=== PATIENT | female | born 1945 | race Caucasian/White ===

== ENCOUNTER 2022-10-12 12:50 | Emergency (ER) | payer MEDICARE ==
[~2022-10-12] VITALS: Ht 160 cm; Wt 55.3 kg
[2022-10-12] MEDS ORDERED: OXYC5 PO (14:11)
== END 2022-10-12 14:18 | disposition home or self-care (01) ==
LOC: ER 12:50
DX: S42.215A Unspecified nondisplaced fracture of surgical neck of left humerus, initial encounter for closed fracture (principal); W18.30XA Fall on same level, unspecified, initial encounter
CPT/HCPCS: 73060; 73070; A9270; J1885

== ENCOUNTER 2022-10-27 15:04 | Emergency (ER) | payer OTHER ==
[~2022-10-27] VITALS: Ht 152.4 cm; Wt 68.0 kg
[~2022-10-27 15:04] MED LIST: OXYC5 PO
[2022-10-27] MEDS ORDERED: Norco 5-325 Ta1 EACH PO (16:27)
== END 2022-10-27 16:58 | disposition home or self-care (01) ==
LOC: ER 15:04
DX: S42.202A Unspecified fracture of upper end of left humerus, initial encounter for closed fracture (principal); W18.30XA Fall on same level, unspecified, initial encounter
CPT/HCPCS: 73060

== ENCOUNTER 2023-07-12 16:32 | Emergency (ER) | payer OTHER ==
[~2023-07-12] VITALS: Ht 152.4 cm; Wt 59.4 kg
[~2023-07-12 16:32] MED LIST changes: +Norco 5-325 Ta1 EACH PO
[2023-07-12 17:29] LABS: BASOPHILS ABSOLUTE AUTO 0.07 K/mm3 (0.00-0.23); BASOPHILS PERCENT AUTO 1 % (0-2); EOSINOPHILS ABSOLUTE AUTO 0.11 K/mm3 (0.00-0.68); EOSINOPHILS PERCENT AUTO 2 % (0-6); Hematocrit 39.9 % (33.0-51.0); IMMATURE GRAN ABSOLUTE AUTO 0.01 K/mm3 (0.00-0.10); IMMATURE GRAN PERCENT AUTO 0 % (0-1); LYMPHOCYTES ABSOLUTE AUTO 1.31 K/mm3 (0.84-5.20); LYMPHOCYTES PERCENT AUTO 23 % (21-46); MONOCYTES ABSOLUTE AUTO 0.52 K/mm3 (0.16-1.47); MONOCYTES PERCENT AUTO 9 % (4-13); Mean Corpuscular HGB 31.3 pg (26.0-34.0); Mean Corpuscular HGB Conc 32.6 g/dL (31.5-36.5); Mean Corpuscular Volume 96 fL (80-100); Mean Platelet Volume 9.8 fL (9.1-12.4); NEUTROPHILS ABSOLUTE AUTO 3.63 K/mm3 (1.96-9.15); NEUTROPHILS PERCENT AUTO 64 % (41-73); Platelet Count 187 K/mm3 (150-400); RDW Coefficient Variation 14.3 % (11.7-14.2); RDW Standard Deviation 49.8 fL (35.1-46.3); Red Blood Cell Count 4.15 M/mm3 (3.80-5.20); White Blood Cell Count 5.65 K/mm3 (4.00-11.30)
[2023-07-12 17:49] LABS: Albumin/Globulin Ratio 1.1 (0.8-1.8); Bilirubin, Total 0.5 mg/dL (0.1-1.0); Globulin, Blood 3.6 g/dL (2.2-4.0); Potassium, Blood 4.3 mmol/L (3.5-5.5); Total Protein, Blood 7.6 g/dL (6.4-8.2)
[2023-07-12 19:44] VITALS: BP 125/80
== END 2023-07-12 21:18 | disposition home or self-care (01) ==
LOC: ER 16:32
PROVIDERS: Student in an Organized Health Care Education/Training Program
DX: J44.9 Chronic obstructive pulmonary disease, unspecified (principal); Z95.0 Presence of cardiac pacemaker
CPT/HCPCS: 71046; 80053; 84484; 85025; 85379; 93005; 93010; 99284-25

== ENCOUNTER → 2023-08-03 | Outpatient (CLI) | payer OTHER ==
[2023-08-03 15:40] LABS: U Amphetamine Screen Not Detected; U Barbituate Screen DETECTED; U Benzodiazapine Screen Not Detected; U Buprenorphine Screen Not Detected; U Cannabinoids Screen Not Detected; U Cocaine Screen Not Detected; U Methadone Screen Not Detected; U Methamphetamine Screen Not Detected; U Opiates Screen Not Detected; U Oxycodone Screen DETECTED; U Phencyclidine Screen Not Detected; U Propoxyphene Screen Not Detected
== END | disposition home or self-care (01) ==
LOC: LAB SHORT 14:28 → LAB 14:28
PROVIDERS: Internal Medicine
DX: Z51.81 Encounter for therapeutic drug level monitoring (principal); Z79.891 Long term (current) use of opiate analgesic
CPT/HCPCS: G0480

== ENCOUNTER 2023-09-04 07:07 | Day surgery (SDC) | payer OTHER ==
[2023-09-04] VITALS (9 sets, daily range): BP systolic 99–144; BP diastolic 49–79
[~2023-09-04] VITALS: Ht 152.4 cm; Wt 60.3 kg
[~2023-09-04 07:07] MED LIST changes: +ALBU90OI INH; +ALEN70 PO; +CARV3.125 PO; +DULO30 PO; +FERSU300 PO; +FURO20 PO; +Lisinopril2.5 MG PO; +METHI10 PO; +Primidone50 MG PO; +TIOT18 INH; +TRAM50 PO; +XARELTO20 MG PO
[2023-09-04 08:21] LABS: BASOPHILS ABSOLUTE AUTO 0.04 K/mm3 (0.00-0.23); BASOPHILS PERCENT AUTO 1 % (0-2); EOSINOPHILS ABSOLUTE AUTO 0.14 K/mm3 (0.00-0.68); EOSINOPHILS PERCENT AUTO 3 % (0-6); Hematocrit 39.6 % (33.0-51.0); Hemoglobin 12.8 g/dL (11.5-16.0); IMMATURE GRAN ABSOLUTE AUTO 0.01 K/mm3 (0.00-0.10); IMMATURE GRAN PERCENT AUTO 0 % (0-1); LYMPHOCYTES PERCENT AUTO 28 % (21-46); MONOCYTES ABSOLUTE AUTO 0.41 K/mm3 (0.16-1.47); MONOCYTES PERCENT AUTO 8 % (4-13); Mean Corpuscular HGB 31.3 pg (26.0-34.0); Mean Corpuscular HGB Conc 32.3 g/dL (31.5-36.5); Mean Corpuscular Volume 97 fL (80-100); Mean Platelet Volume 9.6 fL (9.1-12.4); NEUTROPHILS ABSOLUTE AUTO 3.29 K/mm3 (1.96-9.15); NEUTROPHILS PERCENT AUTO 61 % (41-73); Platelet Count 174 K/mm3 (150-400); RDW Coefficient Variation 14.2 % (11.7-14.2); RDW Standard Deviation 50.7 fL (35.1-46.3); Red Blood Cell Count 4.09 M/mm3 (3.80-5.20); White Blood Cell Count 5.39 K/mm3 (4.00-11.30)
[2023-09-04 08:26] LABS: International Normalized Ratio 1.06; Prothrombin Time Results 11.1 Sec (9.7-11.5)
[2023-09-04 08:30] LABS: Bun/Creatinine Ratio 14.2 (12.0-20.0); Calcium, Blood 8.4 mg/dL (8.5-10.1); Creatinine, Blood 1.06 mg/dL (0.40-1.00); Potassium, Blood 3.7 mmol/L (3.5-5.5)
--- NOTE | 2023-09-04 11:32 | NUR ---
PT BACK TO RECOVERY ROOM FROM PROCEDURE. 4L O2 PLACED BIOX IS 84%. BIOX INCREASED TO 95%. PT EX DEAN TO BEDSIDE. PT GIVEN COFFEE PER REQUEST.
--- NOTE | 2023-09-04 12:11 | NUR ---
PT GIVEN LUNCH. O2 REMOVED, BIOX 94% ON RA.
--- NOTE | 2023-09-04 13:30 | NUR ---
TR BAND ON R WRIST DEFLATED PER PROTOCOL. BRUSING NOTED, NO SWELLING OR BLEEDING.
--- NOTE | 2023-09-04 14:24 | NUR ---
PT VERBALIZE D/C INSTRUCTIONS, TR BAND REMOVED, DOT CLOTH PLACED. BRUISING NOTED TO R WRIST, BUT NO SWELLING OR BLEEDING. PT S/O DEAN HERE TO DRIVE PT HOME. IV D/C CATHETER INTACT. PT WHEELED OUT TO CAR.
== END 2023-09-04 14:30 | disposition home or self-care (01) ==
LOC: MHTC 07:07
PROVIDERS: Internal Medicine Cardiovascular Disease
DX: I25.10 Atherosclerotic heart disease of native coronary artery without angina pectoris (principal); I25.82 Chronic total occlusion of coronary artery; E03.9 Hypothyroidism, unspecified; I10 Essential (primary) hypertension; J44.9 Chronic obstructive pulmonary disease, unspecified; Z95.0 Presence of cardiac pacemaker; I48.19 Other persistent atrial fibrillation; Z79.01 Long term (current) use of anticoagulants; Z87.891 Personal history of nicotine dependence
CPT/HCPCS: 76937; 80048; 85025; 85610; 93458; 99152; C1769; C1887; C1894; J1644; J2250; J3010; J7030; J7050; Q9967

== ENCOUNTER 2025-07-25 18:01 | Inpatient (IN) | payer OTHER ==
[~2025-07-25] VITALS: Ht 165.1 cm; Wt 49.4 kg
[~2025-07-25 18:01] MED LIST changes: +AMOCLA500 PO; +ATOR40TA PO; +JARDIANCE10 MG PO; +METO25ER PO; +POTCHL20ER PO
[2025-07-25] MEDS ORDERED: Morphine Sulfate 4 MG/1 ML Injection IV ONE ×2 (18:50→22:00)
[2025-07-25 18:58] LABS: BASOPHILS ABSOLUTE AUTO 0.04 K/mm3 (0.00-0.23); BASOPHILS PERCENT AUTO 0 % (0-2); EOSINOPHILS ABSOLUTE AUTO 0.03 K/mm3 (0.00-0.68); EOSINOPHILS PERCENT AUTO 0 % (0-6); Hematocrit 31.6 % (33.0-51.0); Hemoglobin 10.3 g/dL (11.5-16.0); IMMATURE GRAN ABSOLUTE AUTO 0.04 K/mm3 (0.00-0.10); IMMATURE GRAN PERCENT AUTO 0 % (0-1); LYMPHOCYTES ABSOLUTE AUTO 0.63 K/mm3 (0.84-5.20); LYMPHOCYTES PERCENT AUTO 6 % (21-46); MONOCYTES ABSOLUTE AUTO 0.63 K/mm3 (0.16-1.47); MONOCYTES PERCENT AUTO 6 % (4-13); Mean Corpuscular HGB Conc 32.6 g/dL (31.5-36.5); Mean Corpuscular Volume 96 fL (80-100); NEUTROPHILS ABSOLUTE AUTO 9.31 K/mm3 (1.96-9.15); NEUTROPHILS PERCENT AUTO 87 % (41-73); NRBC ABSOLUTE 0.00 K/mm3 (0.00-0.02); NRBC Auto 0.0 /100 WBC (0.0-0.2); Platelet Count 167 K/mm3 (150-400); RDW Coefficient Variation 13.8 % (11.7-14.2); RDW Standard Deviation 48.9 fL (35.1-46.3)
[2025-07-25 19:48] LABS: Anion Gap 6.0 mmol/L (3-11); Blood Urea Nitrogen 17.0 mg/dL (8-24); CO2, Blood 32.0 mmol/L (21-32); Calcium, Blood 9.1 mg/dL (8.5-10.1); Chloride, Blood 101.0 mmol/L (98-108); Creatinine, Blood 0.94 mg/dL (0.40-1.00); Glucose, Blood 134.0 mg/dL (70-99); Magnesium, Blood 2.3 mg/dL (1.6-2.4); Potassium, Blood 4.2 mmol/L (3.5-5.5); Sodium, Blood 135.0 mmol/L (136-145); Thyroid Stimulating Hormone 10.8 uIU/mL (0.360-4.800)
[2025-07-25] MEDS ORDERED: Morphine Sulfate 4 MG/1 ML Injection IV PRN (22:30)
[2025-07-25] MEDS ORDERED: Tiotropium Bromide 2.5 MCG/ACT MIST INHAL (10 ACT/4 GM) INH SCH (22:30)
[2025-07-25] MEDS ORDERED: NS 1,000 ML IV SCH (22:30)
[2025-07-25] MEDS ORDERED: OxyCODONE 5 mg/Acetamin 325 mg TABLET PO PRN (22:30)
[2025-07-25 23:33] VITALS: BP 164/95
[2025-07-26] VITALS (17 sets, daily range): BP systolic 112–150; BP diastolic 69–99
[2025-07-26 04:48] LABS: Hematocrit 35.1 % (33.0-51.0); Hemoglobin 11.2 g/dL (11.5-16.0); Mean Corpuscular HGB Conc 31.9 g/dL (31.5-36.5); Mean Corpuscular Volume 96 fL (80-100); NRBC ABSOLUTE 0.00 K/mm3 (0.00-0.02); NRBC Auto 0.0 /100 WBC (0.0-0.2); Platelet Count 145 K/mm3 (150-400); RDW Coefficient Variation 13.8 % (11.7-14.2); RDW Standard Deviation 48.8 fL (35.1-46.3)
[2025-07-26 05:04] LABS: Anion Gap 11.0 mmol/L (3-11); Blood Urea Nitrogen 15.0 mg/dL (8-24); CO2, Blood 27.0 mmol/L (21-32); Calcium, Blood 8.5 mg/dL (8.5-10.1); Chloride, Blood 102.0 mmol/L (98-108); Creatinine, Blood 0.85 mg/dL (0.40-1.00); Glucose, Blood 119.0 mg/dL (70-99); Magnesium, Blood 2.2 mg/dL (1.6-2.4); Potassium, Blood 4.1 mmol/L (3.5-5.5); Sodium, Blood 136.0 mmol/L (136-145)
[2025-07-26 08:24] LABS: Prothrombin Time Results 11.4 Sec (9.7-11.5)
[2025-07-26] MEDS ORDERED: HYDROmorphone HCl/Pf 1MG SYR IV PRN ×2 (08:50→11:40)
--- NOTE | 2025-07-26 11:02 | NUR ---
PT TO PACU IN BED. DENTURES REMOVED PRIOR TO SURGERY. Patient confirms NPO status and agrees with scheduled surgery. Pre-Op teaching done. Pt verbalizes understanding. FIELD START 20G IV TO R FA FLUSHED WITH 10CC NS AND ATTACHED TO LR AT TKO. LUNG SOUNDS CLEAR/DIMINISHED, PT BREATHING EVENLY AND UNLABORED. TELE BOX DISCONNECTED PRIOR TO SURGERY- RUNNING TACHY 100'S-110'S PRIOR TO SURGERY. PT PAINFUL WHEN MOVING IN BED, CALM, COOPERATIVE.
[2025-07-26] MEDS ORDERED: Rocuronium Bromide 10 MG/ML 5ML Injection IV ONE (11:03)
[2025-07-26] MEDS ORDERED: FentaNYL Citrate 50 MCG/ML 2 ML Injection ONE ×2 (11:03→12:57)
[2025-07-26] MEDS ORDERED: Dexamethasone Sod Phos 10 MG/ML 1ML VIAL ONE (11:03)
[2025-07-26] MEDS ORDERED: Phenylephrine HCl 100 MCG/ML-NS 10MLSYR (1MG/10ML) ONE (11:16)
[2025-07-26] MEDS ORDERED: CeFAZolin Sodium 1000 mg Vial ONE ×2 (11:23)
[2025-07-26] MEDS ORDERED: CeFAZolin Sodium 2,000 MG VIAL ONE (11:32)
[2025-07-26] MEDS ORDERED: Bupivacaine 0.5% W/EPI 1:200000 SDV 30 ML Vial ONE (11:32)
[2025-07-26] MEDS ORDERED: FentaNYL Citrate 50 MCG/ML 2 ML Injection IV PRN (11:40)
[2025-07-26] MEDS ORDERED: Ondansetron HCl 2 MG / ML 2ML Vial IV PRN (11:40)
[2025-07-26] MEDS ORDERED: Bupivacaine HCl 2.5 MG/ML 10ML P/F Injection ONE (12:22)
[2025-07-26] MEDS ORDERED: Sugammadex Sodium 200 MG/2ML SDV (100 MG/ML) ONE (12:55)
[2025-07-26] MEDS ORDERED: Ondansetron HCl 2 MG / ML 2ML Vial ONE (12:55)
--- NOTE | 2025-07-26 14:42 | NUR ---
PT RETURNED FROM PACU 1400, OPENS EYES TO VERBAL STILL VERY SLEEPY. STATES SHE REMEMBERS ME, CANT REMEBER WHERE SHE IS. VSS, SATS 95% 3L NC, RESP EVEN UNLABORED- ON CONT PULSE OX. SCD'S IN USE. L ARM IN SPLINT/LUZ MARIA, CMS INTACT. L HIP DRESSING PROX SHADOW 1". ABLE TO WIGGLE TOES, CMS LLE INTACT. . STATES NO PAIN CURRENTLY. TOOK IN A ICE CHIP. WANTING TO SLEEP. WILL MIKEL
[2025-07-26] MEDS ORDERED: NS 1,000 ML IV SCH (18:00)
--- NOTE | 2025-07-26 18:32 | NUR ---
SUMMARY- PT A/O X3, S/P L HIP PINNING, L RAD/ULNA OPEN FX WASHOUT (DR UNABLE TO PERFORM ORIF RELATED TO UNREPORTED OPEN FX). SOFT CAST IN PLACE TO L WRIST. PT ABLE TO WIGGLE FINGERS, CMS INTACT, MOD SWELLING IN HAND WITH SOFT BRUISING IN FINGERS. AQUACEL TO L HIP WITH 1" SHADOW PROX END. PT SLEEPING POST OP, AWAKENS EASILY, MEDICATED WITH DILAUDID 1MG AT 1800 FOR REPORTS OF PAIN BEFOER TURN. PT TOOK IN ZERO PO INTAKE. CALLED DR SINGH TO GET IVF STARTED.PT SHALLOW BREATHING. REMINDED ENC COUGH AND DEEP BREATH, LUNGS REMAIN CLEAR, REMAINS ON 3L O2 WITH SAT 95-97% (BASELINE 3L). WILL REPORT TO NOC RN
--- NOTE | 2025-07-26 18:48 | NUR ---
ADDENDUM FOR SUMM- NO VOID SINCE SURGERY, WILL BLADDER SCAN
--- NOTE | 2025-07-27 02:59 | NUR ---
CALL TO HOSPITALIST. ORDER OBTAINED FOR MADERA PLACEMENT D/T ACUTE URINARY RETENTION AND PT BEING ON BEDREST ORDERS POST OP.
[2025-07-27 03:50] VITALS: BP 131/68
--- NOTE | 2025-07-27 05:44 | NUR ---
TELEMETRY NOTIFICATION. CALL RECEIVED FROM TELEMETRY AT 0528 STATING PT HAD A 11 SECOND PERIOD OF ALTERNATING BUNDLES. THIS RN IMMEDIATLY CHECKED ON PT WHO WAS RESTING WITH EYES CLOSED. THIS RN AWOKE PT AND PT DENIES SOB OR CHEST PAIN/PRESSURE. PT RETURNED TO AFIB IN THE 90S.
--- NOTE | 2025-07-27 06:13 | NUR ---
SHIFT SUMMARY NOC. PT A/O X4 BUT FORGETFUL AT TIMES. PT POD 1 FOR LEFT HIP PINNING AND LUE WASHOUT. LEFT HIP AND LUE DRESSING C/D/I. SLING ON LUE. PT MEDICATED FOR PAIN WITH REPORTED RELIEF OF SX. PT HAVING ACUTE URINARY RETENTION THIS SHIFT AND MADERA CATH PLACED. SEE PREVIOUS NOTE FOR TELEMETRY EVENT. PT IN AFIB AND ASYMPTOMATIC. CALL LIGHT IN REACH.
[2025-07-27 07:27] VITALS: BP 103/74
[2025-07-27 07:32] LABS: Hematocrit 25.5 % (33.0-51.0); Hemoglobin 8.3 g/dL (11.5-16.0); Mean Corpuscular HGB Conc 32.5 g/dL (31.5-36.5); Mean Corpuscular Volume 95 fL (80-100); NRBC ABSOLUTE 0.00 K/mm3 (0.00-0.02); NRBC Auto 0.0 /100 WBC (0.0-0.2); RDW Coefficient Variation 13.8 % (11.7-14.2); RDW Standard Deviation 48.3 fL (35.1-46.3)
[2025-07-27 07:33] LABS: Platelet Count 115 K/mm3 (150-400)
[2025-07-27 12:06] VITALS: BP 109/70
[2025-07-27 15:03] VITALS: BP 124/81
--- NOTE | 2025-07-27 18:26 | NUR ---
SHIFT SUMMARY WORKED w/ THERAPY TODAY BUT VERY WEAK. L ARM IN SLING w/ BRUISING & SWELLING T/O ARM/HAND. INCREASED PAIN MEDICATION & RESTARTED XARELTO. EATING, DRINKING, & MADERA FOR RETENTION.
[2025-07-27 19:19] VITALS: BP 116/69
[2025-07-27 23:28] VITALS: BP 123/69
[2025-07-28] VITALS (10 sets, daily range): BP systolic 133–162; BP diastolic 72–90
[2025-07-28 04:40] LABS: Hematocrit 21.1 % (33.0-51.0); Hemoglobin 6.9 g/dL (11.5-16.0); Mean Corpuscular HGB Conc 32.7 g/dL (31.5-36.5); Mean Corpuscular Volume 95 fL (80-100); NRBC ABSOLUTE 0.00 K/mm3 (0.00-0.02); NRBC Auto 0.0 /100 WBC (0.0-0.2); Platelet Count 144 K/mm3 (150-400); RDW Coefficient Variation 14.1 % (11.7-14.2); RDW Standard Deviation 49.0 fL (35.1-46.3)
--- NOTE | 2025-07-28 07:28 | NUR ---
SHIFT SUMMARY NOC. PT A/O X3-4 AND FORGETFUL AT TIMES. PT POD 2 FOR LEFT HIP PINNING AND LUE WASHOUT. LEFT HIP HAS SOME PROXIMAL SHADOWING, LUE IS C/D/I. SLING ON LUE. PT MEDICATED FOR PAIN WITH SOME REPORTED RELIEF OF SX. PT'S MADERA PATENT AND DRAINING TO GRAVITY, CATH CARE DONE THIS SHIFT. PT TELEMETRY INTACT, PT IN AFIB AND ASYMPTOMATIC. CALL LIGHT IN REACH, PT OCCASIONALLY HOLLERS OUT INSTEAD OF USING CALL LIGHT.
[2025-07-28 09:19] LABS: Ferritin, Serum 373.0 ng/mL (8-252); Total Iron Binding Capacity 210.0 ug/dL (250-450)
[2025-07-28] MEDS ORDERED: NS 250 ML IV PRN (10:40)
[2025-07-28] MEDS ORDERED: Iron Dextran 50 MG / ML 2ML Vial IV ONE (13:05)
[2025-07-28] MEDS ORDERED: Iron Dextran 975 MG in NS 250 ML IV ONE (15:00)
--- NOTE | 2025-07-28 17:51 | NUR ---
SHIFT SUMMARY PT SLEEPING. PRBC X-1 TODAY. REFUSED IRON INFUSION. REFUSED XARELTO DOSE. REFUSED PT. ATTEMPTED BSC WITH TWO ASSIST AND WALKER/GAIT BELT EARLIER TODAY; PT UNABLE TO FOLLOW DIRECTIONS. BACK TO BED.
[2025-07-29 04:25] LABS: Hematocrit 27.3 % (33.0-51.0); Hemoglobin 9.3 g/dL (11.5-16.0); Mean Corpuscular HGB Conc 34.1 g/dL (31.5-36.5); Mean Corpuscular Volume 92 fL (80-100); NRBC ABSOLUTE 0.07 K/mm3 (0.00-0.02); NRBC Auto 0.6 /100 WBC (0.0-0.2); Platelet Count 150 K/mm3 (150-400); RDW Coefficient Variation 14.9 % (11.7-14.2); RDW Standard Deviation 49.8 fL (35.1-46.3)
[2025-07-29 04:50] VITALS: BP 156/85
--- NOTE | 2025-07-29 05:17 | NUR ---
CEO & CO FOUNDER SUMMARY NO ACUTE CHANGES THIS SHIFT. PT AAOX4 WITH SOME INTERMITTENT CONFUSION/FORGETFULNESS. DRESSING TO L HIP C/D/I. PT HAD A VERY SMALL HARD BM. BOWEL MEDS GIVEN PER JAN AND DR TAYLOR ADDED ADDTIONAL BOWEL MEDS TO START LATER THIS MORNING IN PREP FOR A SCOPE IN THE NEXT FEW DAYS. PAIN CONTROLLED WELL WITH PO PAIN MEDS PER JAN. HGB IMPROVED UP TO 9.1 THIS MORNING AFTER RECIEVING 1 UNIT PRBC ON DAY SHIFT. VSS, WCTM.
[2025-07-29 07:27] VITALS: BP 153/81
[2025-07-29] MEDS ORDERED: Polyethylene Glycol 3350 17 gm PO ONE ×2 (08:00→21:00)
--- NOTE | 2025-07-29 08:08 | NUR ---
SIX BEAT RUN OF VTACH REPORTED BY COMMUNITY LIAISON WHILE WE WERE READJUSTING/BOOSTING PATIENT. RHYTHM NOT SUSTAINED. WILL CONTINUE TO MONITOR.
[2025-07-29 10:57] VITALS: BP 132/72
[2025-07-29 15:52] VITALS: BP 127/78
--- NOTE | 2025-07-29 17:20 | NUR ---
Shift summary pt was able to work with pt and stand at bedside. pt on clear liquid diet per GI. recently medicated for pain. eliquis on hold per GI. awaiting stool for guiac sample.
[2025-07-29 20:29] VITALS: BP 151/76
[2025-07-29 23:40] VITALS: BP 141/82
--- NOTE | 2025-07-30 04:00 | NUR ---
SHIFT SUMMARY BENEDICT WAS ALERT AND ORIENTED X3-4 ON ASSESSMENT. PT PAIN WELL CONTROLLED MOST OF SHIFT WITH EXCEPTION OF SPASMS, HOSPITALIST CALLED, ONE DOES OF EDUERIL ORDERED PRN PT FELL ASLEEP BEFORE ADMINISTRATION. DRESSING TO HIP C/D/I, SENSATION AND CIRCULATION TO EXTS INTACT. MADERA IN PLACE DRAINING YELLOW URINE TO GRAVITY. L ARM REMAINS IN SLING. NO ACUTE EVENTS OR OTHER NOTED CHANGES TO PT CONDITION. PT KEPT NPO FOR ENDOSCOPY TOMORROW.
[2025-07-30 04:35] VITALS: BP 144/86
[2025-07-30 06:55] LABS: Hematocrit 29.2 % (33.0-51.0); Hemoglobin 9.6 g/dL (11.5-16.0); Mean Corpuscular HGB Conc 32.9 g/dL (31.5-36.5); Mean Corpuscular Volume 95 fL (80-100); NRBC ABSOLUTE 0.03 K/mm3 (0.00-0.02); NRBC Auto 0.3 /100 WBC (0.0-0.2); Platelet Count 159 K/mm3 (150-400); RDW Coefficient Variation 15.0 % (11.7-14.2); RDW Standard Deviation 51.8 fL (35.1-46.3)
[2025-07-30 07:19] VITALS: BP 142/89
[2025-07-30 11:17] VITALS: BP 152/84
--- NOTE | 2025-07-30 13:01 | NUR ---
0800 PT DRANK ALL OF SUREPREP 0830 - PT FOUND TO HAVE POOL OF FECES IN BED AND ACTIVELY HAVING LIQUID BM'S. PT CLEANSED. RECTAL TUBE PLACED PT'S BM'S WERE TO THE NATURE THAT THE HIP AQUACEL HAD TO BE CHANGED, THE MADERA HAD TO BE VIGOROUSLY CLEANSED, ELECTRONICS REPLACED, ETC. RECTAL TUBE PLACE SNA DPT IMMEDIATELY FILLED FIRST BAG. PT ALMOST HAS FILLED SECOND BAG NOW.
[2025-07-30 13:15] LABS: Stool Occult Bld Immuno 1 Negative (NEGATIVE)
[2025-07-30 15:11] VITALS: BP 122/64
--- NOTE | 2025-07-30 16:54 | NUR ---
SUMMARY SEE SUREPREP NOTE. ASSUMED CARE OF PT @0700. AXO4. VSS. POST SUREPREP DOSING, PT HAS HAD MANY LARGE LIQUID BM'S INTO THE RECTAL TUBE. BM'S ARE STILL BROWN AND NOT ELOY, SURGIVAL TEAM AWARE - AWAITING DECISION FOR WHETHER PT WILL BE DOING SURGERY OR NOT. PT PAINFUL TO L ARM/HIP - PAIN MEDS PER EMAR ADMINISTERED. TELE REMAINS AFIB. ON 2-3LNC. MADERA PATENT. SLING REMAINS TO L ARM. DRESSING TO L HIP CDI - AQUACEL. PT HAS NOT BEEN OOB THIS SHIFT - PT RELUCTANT TO DO MUCH IN TERMS OF PHYSICALITY. PT HAS BEEN NPO SINCE 1300 FOR HOPEFUL SCOPE THIS EVENING. AWAITING FINAL WORD ON THIS. PT USING CALL LIGHT APPROPRIATELY.
--- NOTE | 2025-07-30 18:38 | NUR ---
PT MADE CLEAR LIQUID DIET AND PLAN FOR SCOPE TMR - PT NEEDS MORE SUREPREP PER DR TAYLOR. PT AWARE. DIET ORDER PLACED.
[2025-07-30 19:17] VITALS: BP 124/70
[2025-07-30 23:45] VITALS: BP 124/66
[2025-07-31] VITALS (7 sets, daily range): BP systolic 100–145; BP diastolic 60–107
[2025-07-31 05:20] LABS: Hematocrit 26.3 % (33.0-51.0); Hemoglobin 8.8 g/dL (11.5-16.0); Mean Corpuscular HGB Conc 33.5 g/dL (31.5-36.5); Mean Corpuscular Volume 93 fL (80-100); NRBC ABSOLUTE 0.00 K/mm3 (0.00-0.02); NRBC Auto 0.0 /100 WBC (0.0-0.2); Platelet Count 180 K/mm3 (150-400); RDW Coefficient Variation 15.0 % (11.7-14.2); RDW Standard Deviation 49.6 fL (35.1-46.3)
--- NOTE | 2025-07-31 06:13 | NUR ---
SHIFT SUMMARY NOC. PT POD 5 FOR LEFT HIP PINNING AND LUE WASHOUT. PT A/O X3-4 AND INTERMITTENTLY FORGETFUL. AQUACEL IS C/D/I, CHANGED YESTERDAY ON DAY SHIFT. PT'S LUE IN SLING AND IS C/D/I. PT MEDICATED FOR PAIN WITH SOME REPORTED RELIEF. MADERA IS PATENT AND DRAINING TO GRAVITY, RECTAL TUBE IS PATENT AND PRODUCING OUTPUT. TELEMETRY INTACT WITH NO REPORTED EVENTS. CALL LIGHT IN REACH, PT USES CALL LIGHT.
--- NOTE | 2025-07-31 14:21 | NUR ---
History, Chart, Medications and Allergies reviewed before start of procedure. Lungs clear T/O to Auscultation. SOB at baseline. Patient confirms NPO status and agrees with scheduled surgery. Pre-Op teaching done. Pt verbalizes understanding. Rectal tube in place with dark yellow liquid.
[2025-07-31] MEDS ORDERED: Ondansetron HCl 2 MG / ML 2ML Vial IV PRN (14:35)
--- NOTE | 2025-07-31 15:19 | NUR ---
07/31/25 1519 Ester Oliveros History, Chart, Medications and Allergies reviewed before start of procedure. MONITOR INTACT WITH CONTINUOUS PULSE OXIMETRY, CONTINUOUS END TITAL CO2, 3-LEAD EKG AND INTERMITTENT BLOOD PRESSURE. O2 VIA POM INTACT THROUGHOUT SEDATION/PROCEDURE. Bite Block Placed. DR. JASWANT NEWTON MAC, SEE ANESTHESIA RECORD.
--- NOTE | 2025-07-31 18:46 | NUR ---
SHIFT SUMMARY POD0 COLONOSCOPY AND UPPER ENDOSCOPY, A/OX4, VSS, TOLERATING PO, RECTAL TUBE REMVOED FOR THE SCOPE AND NOT REPLACED AFTERWARDS, PT STILL GETTING POST OP VITALS. NO ACUTE EVENTS THIS SHIFT, CALL LIGHT IN REACH.
[2025-08-01 00:32] VITALS: BP 100/64
[2025-08-01 05:04] VITALS: BP 119/70
--- NOTE | 2025-08-01 05:27 | NUR ---
SHIFT SUMMARY NOC. PT POD 6 FOR L HIP PINNING AND LUE WASHOUT. POD 1 FOR UPPER/LOWER GI SCOPE. PT A/O X3-4 AND FORGETFUL AT TIMES. AQUACEL IS C/D/I. PT'S LUE IS IN SLING AND C/D/I. PT MEDICATED FOR PAIN WITH MIONIMAL TO SOME REPORTED RELIEF OF L HIP/LUE PAIN. MADERA PATENT AND DRAINING TO GRAVITY, URINE DARKER THIS SHIFT THAN PREVIOUS, ENCOURAGING PO INTAKE. TELEMETRY INTACT c NO REPORTED EVENTS. CALL LIGHT IN REACH.
[2025-08-01 07:15] VITALS: BP 112/51
[2025-08-01 09:03] LABS: Hematocrit 27.2 % (33.0-51.0); Hemoglobin 9.1 g/dL (11.5-16.0); Mean Corpuscular HGB Conc 33.5 g/dL (31.5-36.5); Mean Corpuscular Volume 94 fL (80-100); NRBC ABSOLUTE 0.00 K/mm3 (0.00-0.02); NRBC Auto 0.0 /100 WBC (0.0-0.2); Platelet Count 198 K/mm3 (150-400); RDW Coefficient Variation 15.7 % (11.7-14.2); RDW Standard Deviation 50.7 fL (35.1-46.3)
--- NOTE | 2025-08-01 10:53 | NUR ---
TELE CAREER PORTALS TEACHER REPORTED PT HR 120-130S AND SUSTAINING. PT CURRENTLY WORKING WITH PHYSICAL THERAPY AND IS NOW BACK TO BED. PT ON CONT BIOX AND SHOWS HR IN THE 120s. PLAN TO MONITOR FOR CHANGES.
[2025-08-01 14:26] VITALS: BP 125/76
--- NOTE | 2025-08-01 16:06 | NUR ---
DISCHARGE SUMMARY POD6 L HIP PINNING AND L WRIST WASHOUT, POD1 UPPER AND LOWER EGD, A/OX4 THOUGH SHE IS FORGETFUL AT TIMES, AQUACELL TO L HIP C/D/I, SIGNIFICANT BRUISING TO HER L HAND WHICH HAS NOT CHANGED SINCE YESTERDAYS SHIFT ASSESSMENT BY THIS RN, SHE WORKED WITH THERAPY TODAY BUT WAS NOT ABLE TO GET UP TO THE CHAIR, BLADDER TRAINING CONTINUED TODAY BUT WAS STARTED DURING NOC SHIFT PER NOC RN REPORT, MADERA WAS REMOVED WITH A FULL BLADDER AND SHE WAS ABLE TO VOID BEFORE DISCHARGE. LUNS DIMINISHED IN THE BASES BILATERALLY, SHE DENIES SOB, PAIN MANAGED PER EMAR. SHE WAS PICKED UP BY TRANSPORT TO GO TO [facility] FOR REHAB. IV ACCESS REMOVED PRIOR TO DISCHARGE.
== END 2025-08-01 14:40 | DRG 480 ==
LOC: ER 18:01 → SURS 22:27 → MEDS 07-28 14:05 → SURS 07-28 14:05
PROVIDERS: Emergency Medicine; Internal Medicine; Internal Medicine Gastroenterology; Nurse Practitioner Acute Care; Orthopaedic Surgery; ADMIT Student in an Organized Health Care Education/Training Program
PROC: 0PSJXZZ Reposition Left Radius, External Approach (ICD-10-PCS; 2025-07-25)
PROC: 0PSLXZZ Reposition Left Ulna, External Approach (ICD-10-PCS; 2025-07-25)
PROC: 0QS736Z Reposition Left Upper Femur with Intramedullary Internal Fixation Device, Percutaneous Approach (ICD-10-PCS; principal; 2025-07-26 08:45)
PROC: 0PDL0ZZ Extraction of Left Ulna, Open Approach (ICD-10-PCS; 2025-07-26 08:45)
PROC: 30233N1 Transfusion of Nonautologous Red Blood Cells into Peripheral Vein, Percutaneous Approach (ICD-10-PCS; 2025-07-28)
PROC: 0DBK8ZZ Excision of Ascending Colon, Via Natural or Artificial Opening Endoscopic (ICD-10-PCS; 2025-07-31)
PROC: 0DBL8ZZ Excision of Transverse Colon, Via Natural or Artificial Opening Endoscopic (ICD-10-PCS; 2025-07-31)
PROC: 0DBM8ZZ Excision of Descending Colon, Via Natural or Artificial Opening Endoscopic (ICD-10-PCS; 2025-07-31)
PROC: 0DB78ZX Excision of Stomach, Pylorus, Via Natural or Artificial Opening Endoscopic, Diagnostic (ICD-10-PCS; 2025-07-31 14:00)
DX: S72.142A Displaced intertrochanteric fracture of left femur, initial encounter for closed fracture (principal); K25.4 Chronic or unspecified gastric ulcer with hemorrhage; S52.592A Other fractures of lower end of left radius, initial encounter for closed fracture; D62 Acute posthemorrhagic anemia; J96.11 Chronic respiratory failure with hypoxia; F11.20 Opioid dependence, uncomplicated; S52.692A Other fracture of lower end of left ulna, initial encounter for closed fracture; J44.9 Chronic obstructive pulmonary disease, unspecified; I48.91 Unspecified atrial fibrillation; E05.90 Thyrotoxicosis, unspecified without thyrotoxic crisis or storm; M81.0 Age-related osteoporosis without current pathological fracture; D50.9 Iron deficiency anemia, unspecified; R29.6 Repeated falls; I10 Essential (primary) hypertension; I07.1 Rheumatic tricuspid insufficiency; K63.5 Polyp of colon; D17.5 Benign lipomatous neoplasm of intra-abdominal organs; E03.9 Hypothyroidism, unspecified; I27.20 Pulmonary hypertension, unspecified; K44.9 Diaphragmatic hernia without obstruction or gangrene; K57.30 Diverticulosis of large intestine without perforation or abscess without bleeding; Z87.891 Personal history of nicotine dependence; Z79.2 Long term (current) use of antibiotics; Z79.51 Long term (current) use of inhaled steroids; Z79.01 Long term (current) use of anticoagulants; Z79.899 Other long term (current) drug therapy; Z99.81 Dependence on supplemental oxygen; Z95.0 Presence of cardiac pacemaker; Z98.890 Other specified postprocedural states; W01.0XXA Fall on same level from slipping, tripping and stumbling without subsequent striking against object, initial encounter; Y92.009 Unspecified place in unspecified non-institutional (private) residence as the place of occurrence of the external cause
CPT/HCPCS: 25605; 36415; 70450; 71045; 72125; 72131; 72192; 73110; 80048; 82274; 82306; 82607; 82728; 83540; 83550; 83735; 84439; 84443; 85025; 85027; 85610; 86850; 86900; 86901; 86923; 93005; 93010; 94640; 94664; 94762; 96374-59; 96376-59; 97110; 97163; 97530; 99285-25; A9270; C1713; J0690; J1100; J1171; J1750; J2270; J2371; J2405; J2704; J3010; J7030; J7120; P9016

== ENCOUNTER → 2025-10-13 | Outpatient (CLI) | payer OTHER ==
[2025-10-13 11:08] LABS: BASOPHILS ABSOLUTE AUTO 0.05 K/mm3 (0.00-0.23); BASOPHILS PERCENT AUTO 1 % (0-2); EOSINOPHILS ABSOLUTE AUTO 0.17 K/mm3 (0.00-0.68); EOSINOPHILS PERCENT AUTO 3 % (0-6); Hematocrit 34.2 % (33.0-51.0); Hemoglobin 11.1 g/dL (11.5-16.0); IMMATURE GRAN ABSOLUTE AUTO 0.02 K/mm3 (0.00-0.10); IMMATURE GRAN PERCENT AUTO 0 % (0-1); LYMPHOCYTES ABSOLUTE AUTO 1.34 K/mm3 (0.84-5.20); LYMPHOCYTES PERCENT AUTO 23 % (21-46); MONOCYTES ABSOLUTE AUTO 0.45 K/mm3 (0.16-1.47); MONOCYTES PERCENT AUTO 8 % (4-13); Mean Corpuscular HGB Conc 32.5 g/dL (31.5-36.5); Mean Corpuscular Volume 95 fL (80-100); NEUTROPHILS ABSOLUTE AUTO 3.76 K/mm3 (1.96-9.15); NEUTROPHILS PERCENT AUTO 65 % (41-73); NRBC ABSOLUTE 0.00 K/mm3 (0.00-0.02); NRBC Auto 0.0 /100 WBC (0.0-0.2); Platelet Count 195 K/mm3 (150-400); RDW Coefficient Variation 15.0 % (11.7-14.2); RDW Standard Deviation 52.4 fL (35.1-46.3)
[2025-10-13 11:58] LABS: Anion Gap 5.0 mmol/L (3-11); Blood Urea Nitrogen 15.0 mg/dL (8-24); CO2, Blood 31.0 mmol/L (21-32); Calcium, Blood 8.8 mg/dL (8.5-10.1); Chloride, Blood 103.0 mmol/L (98-108); Creatinine, Blood 0.84 mg/dL (0.40-1.00); Glucose, Blood 87.0 mg/dL (70-99); Potassium, Blood 4.1 mmol/L (3.5-5.5); Sodium, Blood 135.0 mmol/L (136-145); Uric Acid, Blood 4.4 mg/dL (2.6-6.0)
== END ==
LOC: LAB SHORT 11:05 → LAB 11:05
PROVIDERS: Chiropractor
DX: M79.89 Other specified soft tissue disorders (principal)
CPT/HCPCS: 80048; 84550; 85025